=== PATIENT | male | born 1990 | race Caucasian/White ===

== ENCOUNTER 2019-04-03 07:13 | Emergency (ER) | payer BC, OTHER ==
[~2019-04-03] VITALS: Ht 175.3 cm; Wt 63.5 kg
[2019-04-03] MEDS ORDERED: ONDANSETRON 4 MG/2 ML VIAL ONE (07:42)
[2019-04-03] MEDS ORDERED: MORPHINE SULFATE 4 MG/1 ML DISP.SYRIN ONE (07:42)
[2019-04-03] MEDS ORDERED: MORPHINE SULFATE 2 MG/1 ML DISP.SYRIN IV ONE (07:45)
[2019-04-03] MEDS ORDERED: ONDANSETRON 4 MG/2 ML VIAL IV ONE (07:45)
--- NOTE | 2019-04-03 07:51 | NUR ---
PT IS IN ROOM #2B. DR ANTHONY EVALUATED THE PT.
[2019-04-03] MEDS ORDERED: METOCLOPRAMIDE HCL 10 MG/2 ML VIAL IV ONE (08:00)
[2019-04-03] MEDS ORDERED: diphenhydrAMINE 50 MG/1 ML VIAL IV ONE (08:00)
[2019-04-03] MEDS ORDERED: METOCLOPRAMIDE HCL 10 MG/2 ML VIAL ONE (08:08)
[2019-04-03] MEDS ORDERED: diphenhydrAMINE 50 MG/1 ML VIAL ONE (08:08)
[2019-04-03 08:16] LABS: BASOPHILS # (AUTO) 0.1 K/uL (0.0-8.0); EOSINOPHILS # (AUTO) 0.1 K/uL (0.0-0.7); EOSINOPHILS % (AUTO) 2.4 % (0.0-7.0); HEMATOCRIT 44.6 % (36.7-47.1); HEMOGLOBIN 15.3 g/dL (12.5-16.3); LYMPHOCYTES # (AUTO) 1.9 K/uL (20.0-40.0); LYMPHOCYTES % (AUTO) 35.4 % (20.5-51.5); MEAN CORPUSCULAR HEMOGLOBIN 31.2 uug (23.8-33.4); MEAN CORPUSCULAR HGB CONC 34 g/dL (32.5-36.3); MONOCYTES # (AUTO) 0.4 K/uL (2.0-10.0); MONOCYTES % (AUTO) 7.1 % (0.0-11.0); NEUTROPHILS # (AUTO) 2.8 K/uL (1.8-8.9); NEUTROPHILS % (AUTO) 54.1 % (38.5-71.5); PLATELET COUNT (AUTO) 198 K/uL (152-348); WHITE BLOOD COUNT (AUTO) 5.3 K/uL (3.6-10.2)
[2019-04-03 08:21] LABS: CREATININE 1.1 mg/dL (0.6-1.3); POTASSIUM 4.3 mmol/L (3.5-5.1)
[2019-04-03 08:27] LABS: BILIRUBIN,DIRECT 0.1 mg/dL (0.0-0.2); BILIRUBIN,TOTAL 0.5 mg/dL (0.2-1.0); TOTAL PROTEIN, SERUM 6.9 g/dL (6.4-8.2)
[2019-04-03] MEDS ORDERED: HYDROMORPHONE 1 MG/1 ML DISP.SYRIN IV ONE (08:30)
[2019-04-03] MEDS ORDERED: HYDROMORPHONE 1 MG/1 ML DISP.SYRIN ONE (08:32)
[2019-04-03] MEDS ORDERED: KETOROLAC TROMETHAMINE 30 MG INJ ONE (09:59)
[2019-04-03] MEDS ORDERED: KETOROLAC TROMETHAMINE 30 MG INJ IVP ONE (10:00)
[2019-04-03 10:22] LABS: CSF GLUCOSE 62 mg/dL (40-70); CSF PROTEIN 49 mg/dL (15-45)
--- NOTE | 2019-04-03 10:46 | NUR ---
PT WAS D/C'd TO HOME. D/C INSTRUCTIONS GIVEN TO THE PT BY DR ANTHONY.
[2019-04-03 10:47] VITALS: BP 128/68
== END 2019-04-03 10:53 | disposition home or self-care (01) ==
LOC: ER 07:13
DX: R51 Headache (principal); Z91.041 Radiographic dye allergy status
CPT/HCPCS: 36415; 62270; 70450; 80048; 80076; 82945; 84157; 85025; 85730; 87070; 87205; 96374; 96375; 99284; J1170; J1200; J1885; J2270; J2405; J2765; A4663; J7030